=== PATIENT | female | born 2000 | race Caucasian/White ===

== ENCOUNTER 2021-11-13 22:54 | Emergency (ER) | payer OTHER ==
[2021-11-14 01:35] LABS: HEMOGLOBIN 11.9 gm/dl (12.3-15.3); RED BLOOD COUNT 4.89 M/UL (4.00-5.10)
[2021-11-14 02:00] LABS: BUN/CREATININE RATIO 12 (0-10)
[2021-11-14] MEDS ORDERED: OMNICEF 300 MG300 MG PO (04:57)
== END 2021-11-14 05:14 | disposition home or self-care (01) ==
LOC: ER1 22:54
PROVIDERS: Student in an Organized Health Care Education/Training Program
DX: N39.0 Urinary tract infection, site not specified (principal); Z20.822 Contact with and (suspected) exposure to COVID-19
CPT/HCPCS: 71045; 80048; 81001; 83605; 84703; 85025; 85379; 96374; 99284; Q9967; U0002